=== PATIENT | male | born 1965 | race Caucasian/White ===

== ENCOUNTER 2018-04-12 22:48 | Emergency (ER) | payer BC, OTHER ==
[~2018-04-12] VITALS: Ht 170.2 cm; Wt 63.5 kg
[~2018-04-12 22:48] MED LIST: Z.0.NO CURRENT MEDS
[2018-04-12 23:04] VITALS: BP 133/84; PULSE 93; RESP 20; TEMP 98.3
--- NOTE | 2018-04-12 23:21 | PD ---
HPI Chief Complaint: Psychiatric Symptoms Time Seen by Provider: 23:04 Travel History International Travel<30 days: No Contact w/Intl Traveler<30days: No Traveled to known affect area: No History of Present Illness HPI 52-year-old white male presents emergency department under Sam act by PD. Patient had contacted PD advising him that he wanted to . He was hoping that long enforcement which she would him. He states that his parents or kicking him out of the house. He will have nowhere else to go but here. He states that he is depressed. He states he is suffering from chronic medical problems but he will not elaborate. He admits to drinking alcohol. He denies any toxic ingestion. He does smoke marijuana. He denies any other drugs. Symptoms are severe. Worsened by alcohol. No alleviating factors. PFSH Past Medical History Narrative Medical Psoriasis, DJD, questionable hypertension Tetanus Vaccination: Unknown Past Surgical History Surgical History: Unable to Obtain Social History Alcohol Use: Yes Tobacco Use: Yes (1 PPD) Substance Use: Yes (Marijuana) Allergies-Medications (Allergen,Severity, Reaction): Coded Allergies: No Known Allergies (Verified Allergy, Mild, 05/03/07) Reported Meds & Prescriptions Reported Meds & Active Scripts Active Reported No Current Meds (Miscellaneous Medication) Misc Review of Systems ROS Limitations: Uncooperative, Poor Historian Physical Exam Narrative GENERAL: Well-nourished, well-developed patient. SKIN: Large plaques of psoriasis diffusely on his body. HEAD: Normocephalic and atraumatic. EYES: No scleral icterus. No injection or drainage. ENT: No nasal drainage noted. Mucous membranes pink. Airway patent. NECK: Supple, trachea midline. Moves head freely without obvious discomfort. CARDIOVASCULAR: Regular rate and rhythm without murmurs, gallops, or rubs. RESPIRATORY: Breath sounds equal bilaterally. No accessory muscle use. GASTROINTESTINAL: Abdomen soft, non-tender, nondistended. EXTREMITIES: No cyanosis or edema. BACK: Nontender without obvious deformity. No CVA tenderness. NEURO: Patient is alert and oriented. no sensorimotor deficits. Nonfocal. Normal speech. PSYCH: No delusions. No auditory or visual hallucinations. Data Data Last Documented VS Vital Signs Date Time Temp Pulse Resp B/P (MAP) Pulse Ox O2 Delivery O2 Flow Rate FiO2 04/12/18 23:04 98.3 93 20 133/84 (100) Orders Orders Complete Blood Count With Diff (04/12/18 23:16) Comprehensive Metabolic Panel (04/12/18 23:16) Thyroid Stimulating Hormone (04/12/18 23:16) Psych Screen (04/12/18 23:16) Drug Screen, Random Urine (04/12/18 23:16) Alcohol (Ethanol) (04/12/18 23:16) Salicylates (Aspirin) (04/12/18 23:16) Tylenol (Acetaminophen) (04/12/18 23:16) Diet Regular Basic (04/13/18 Breakfast) Labs Laboratory Tests Test 04/12/18 23:20 04/13/18 00:05 White Blood Count 7.8 TH/MM3 Red Blood Count 5.30 MIL/MM3 Hemoglobin 19.4 GM/DL Hematocrit 54.2 % Mean Corpuscular Volume 102.4 FL Mean Corpuscular Hemoglobin 36.5 PG Mean Corpuscular Hemoglobin Concent 35.7 % Red Cell Distribution Width 15.1 % Platelet Count 229 TH/MM3 Mean Platelet Volume 9.6 FL Neutrophils (%) (Auto) 53.9 % Lymphocytes (%) (Auto) 27.5 % Monocytes (%) (Auto) 8.5 % Eosinophils (%) (Auto) 8.7 % Basophils (%) (Auto) 1.4 % Neutrophils # (Auto) 4.2 TH/MM3 Lymphocytes # (Auto) 2.2 TH/MM3 Monocytes # (Auto) 0.7 TH/MM3 Eosinophils # (Auto) 0.7 TH/MM3 Basophils # (Auto) 0.1 TH/MM3 CBC Comment DIFF FINAL Differential Comment Blood Urea Nitrogen 11 MG/DL Creatinine 1.07 MG/DL Random Glucose 97 MG/DL Total Protein 7.8 GM/DL Albumin 3.9 GM/DL Calcium Level 9.0 MG/DL Alkaline Phosphatase 140 U/L Aspartate Amino Transf (AST/SGOT) 32 U/L Alanine Aminotransferase (ALT/SGPT) 38 U/L Total Bilirubin 0.5 MG/DL Sodium Level 140 MEQ/L Potassium Level 4.2 MEQ/L Chloride Level 108 MEQ/L Carbon Dioxide Level 20.2 MEQ/L Anion Gap 12 MEQ/L Estimat Glomerular Filtration Rate 72 ML/MIN Thyroid Stimulating Hormone 3rd Gen 1.910 uIU/ML Salicylates Level 3.1 MG/DL Acetaminophen Level LESS THAN 2.0 MCG/ML Ethyl Alcohol Level 140 MG/DL Urine Opiates Screen NEG Urine Barbiturates Screen NEG Urine Amphetamines Screen NEG Urine Benzodiazepines Screen NEG Urine Cocaine Screen NEG Urine Cannabinoids Screen NEG MDM Medical Decision Making Medical Screen Exam Complete: Yes Emergency Medical Condition: Yes Medical Record Reviewed: Yes Interpretation(s) Laboratory Tests Test 04/12/18 23:20 04/13/18 00:05 White Blood Count 7.8 TH/MM3 Red Blood Count 5.30 MIL/MM3 Hemoglobin 19.4 GM/DL Hematocrit 54.2 % Mean Corpuscular Volume 102.4 FL Mean Corpuscular Hemoglobin 36.5 PG Mean Corpuscular Hemoglobin Concent 35.7 % Red Cell Distribution Width 15.1 % Platelet Count 229 TH/MM3 Mean Platelet Volume 9.6 FL Neutrophils (%) (Auto) 53.9 % Lymphocytes (%) (Auto) 27.5 % Monocytes (%) (Auto) 8.5 % Eosinophils (%) (Auto) 8.7 % Basophils (%) (Auto) 1.4 % Neutrophils # (Auto) 4.2 TH/MM3 Lymphocytes # (Auto) 2.2 TH/MM3 Monocytes # (Auto) 0.7 TH/MM3 Eosinophils # (Auto) 0.7 TH/MM3 Basophils # (Auto) 0.1 TH/MM3 CBC Comment DIFF FINAL Differential Comment Blood Urea Nitrogen 11 MG/DL Creatinine 1.07 MG/DL Random Glucose 97 MG/DL Total Protein 7.8 GM/DL Albumin 3.9 GM/DL Calcium Level 9.0 MG/DL Alkaline Phosphatase 140 U/L Aspartate Amino Transf (AST/SGOT) 32 U/L Alanine Aminotransferase (ALT/SGPT) 38 U/L Total Bilirubin 0.5 MG/DL Sodium Level 140 MEQ/L Potassium Level 4.2 MEQ/L Chloride Level 108 MEQ/L Carbon Dioxide Level 20.2 MEQ/L Anion Gap 12 MEQ/L Estimat Glomerular Filtration Rate 72 ML/MIN Thyroid Stimulating Hormone 3rd Gen 1.910 uIU/ML Salicylates Level 3.1 MG/DL Acetaminophen Level LESS THAN 2.0 MCG/ML Ethyl Alcohol Level 140 MG/DL Urine Opiates Screen NEG Urine Barbiturates Screen NEG Urine Amphetamines Screen NEG Urine Benzodiazepines Screen NEG Urine Cocaine Screen NEG Urine Cannabinoids Screen NEG Differential Diagnosis MDM: High Differential diagnoses: Schizophrenia, schizoaffective disorder, bipolar, anxiety, depression, adjustment reaction, mood disorder NOS, ODD, depressive disorder NOS, psychosis NOS, substance induced mood disorder, infection, electrolyte abnormality, malingering. Narrative Course Mental health screening discussed with the patient. Psychiatric screen ordered. The patient is a very poor historian. Is very histrionic. He appears to be under the influence of alcohol and/or drugs. A complete history is not obtainable. At this point I do not see anything that looks emergent. We will obtain blood in urine and medically clear the patient. I suspect part of this is that his parents or kicking him out of the house and he has nowhere else to go. This is medical clearance for psychiatric admission Diagnosis Primary Impression: Medical clearance for psychiatric admission Condition: Lennox Waters Apr 12, 2018 23:21
[2018-04-12 23:48] LABS: AUTOMATED NEUTROPHIL # 4.2 TH/MM3 (1.8-7.7); BASOPHIL # 0.1 TH/MM3 (0-0.2); BASOPHIL % 1.4 % (0.0-2.0); EOSINOPHIL # 0.7 TH/MM3 (0-0.4); EOSINOPHIL % 8.7 % (0.0-4.0); HEMATOCRIT 54.2 % (39.0-51.0); HEMOGLOBIN 19.4 GM/DL (13.0-17.0); LYMPH % 27.5 % (9.0-44.0); LYMPHOCYTE # 2.2 TH/MM3 (1.0-4.8); MEAN CELL VOLUME 102.4 FL (80.0-100.0); MEAN CORPUSCULAR HEMOGLOBIN 36.5 PG (27.0-34.0); MEAN CORPUSCULAR HGB CONC 35.7 % (32.0-36.0); MEAN PLATELET VOLUME 9.6 FL (7.0-11.0); MONO % 8.5 % (0.0-8.0); MONOCYTE # 0.7 TH/MM3 (0-0.9); NEUT % 53.9 % (16.0-70.0); PLATELET COUNT 229 TH/MM3 (150-450); RED CELL DISTRIBUTION WIDTH 15.1 % (11.6-17.2); WHITE BLOOD COUNT 7.8 TH/MM3 (4.0-11.0)
[2018-04-13 00:04] LABS: ACETAMINOPHEN LESS THAN 2.0 MCG/ML (10.0-30.0); ALBUMIN 3.9 GM/DL (3.4-5.0); ALT (GPT) 38 U/L (12-78); AST (GOT) 32 U/L (15-37); BICARBONATE 20.2 MEQ/L (21.0-32.0); BLOOD UREA NITROGEN 11 MG/DL (7-18); CHLORIDE 108 MEQ/L (98-107); CREATININE 1.07 MG/DL (0.60-1.30); GLOMERULAR FILTRATION RATE 72 ML/MIN (>89); GLUCOSE,RANDOM 97 MG/DL (74-106); SODIUM (NA) 140 MEQ/L (136-145)
[2018-04-13 00:13] LABS: ALKALINE PHOSPHATASE 140 U/L (45-117); TOTAL BILIRUBIN ADULT 0.5 MG/DL (0.2-1.0); TOTAL PROTEIN 7.8 GM/DL (6.4-8.2)
[2018-04-13 02:29] VITALS: BP 115/71; PULSE 88; RESP 18; TEMP 98.5; O2SAT 97
[2018-04-13 06:09] VITALS: BP 136/82; PULSE 76; RESP 17; TEMP 98.9; O2SAT 95
[2018-04-13 08:56] VITALS: BP 132/74; PULSE 75; RESP 18; O2SAT 98
--- NOTE | 2018-04-13 11:20 | PD ---
Physical Exam Date Seen by Provider: Apr 13, 2018 Time Seen by Provider: 11:19 Narrative 52-year-old male previously Sam acted and medically cleared for psychiatric evaluation, has been evaluated by psychiatric staff. He has been deemed psychiatrically stable for discharge at this time. Patient remains medically stable for discharge. Follow-up will be based on psychiatric note. Data Data Last Documented VS Vital Signs Date Time Temp Pulse Resp B/P (MAP) Pulse Ox O2 Delivery O2 Flow Rate FiO2 04/13/18 08:56 75 18 132/74 (93) 98 Room Air 04/13/18 06:09 98.9 Orders Orders Complete Blood Count With Diff (04/12/18 23:16) Comprehensive Metabolic Panel (04/12/18 23:16) Thyroid Stimulating Hormone (04/12/18 23:16) Psych Screen (04/12/18 23:16) Drug Screen, Random Urine (04/12/18 23:16) Alcohol (Ethanol) (04/12/18 23:16) Salicylates (Aspirin) (04/12/18 23:16) Tylenol (Acetaminophen) (04/12/18 23:16) Diet Regular Basic (04/13/18 Breakfast) Diet Regular Basic (04/13/18 Lunch) Labs Laboratory Tests Test 04/12/18 23:20 04/13/18 00:05 White Blood Count 7.8 TH/MM3 Red Blood Count 5.30 MIL/MM3 Hemoglobin 19.4 GM/DL Hematocrit 54.2 % Mean Corpuscular Volume 102.4 FL Mean Corpuscular Hemoglobin 36.5 PG Mean Corpuscular Hemoglobin Concent 35.7 % Red Cell Distribution Width 15.1 % Platelet Count 229 TH/MM3 Mean Platelet Volume 9.6 FL Neutrophils (%) (Auto) 53.9 % Lymphocytes (%) (Auto) 27.5 % Monocytes (%) (Auto) 8.5 % Eosinophils (%) (Auto) 8.7 % Basophils (%) (Auto) 1.4 % Neutrophils # (Auto) 4.2 TH/MM3 Lymphocytes # (Auto) 2.2 TH/MM3 Monocytes # (Auto) 0.7 TH/MM3 Eosinophils # (Auto) 0.7 TH/MM3 Basophils # (Auto) 0.1 TH/MM3 CBC Comment DIFF FINAL Differential Comment Blood Urea Nitrogen 11 MG/DL Creatinine 1.07 MG/DL Random Glucose 97 MG/DL Total Protein 7.8 GM/DL Albumin 3.9 GM/DL Calcium Level 9.0 MG/DL Alkaline Phosphatase 140 U/L Aspartate Amino Transf (AST/SGOT) 32 U/L Alanine Aminotransferase (ALT/SGPT) 38 U/L Total Bilirubin 0.5 MG/DL Sodium Level 140 MEQ/L Potassium Level 4.2 MEQ/L Chloride Level 108 MEQ/L Carbon Dioxide Level 20.2 MEQ/L Anion Gap 12 MEQ/L Estimat Glomerular Filtration Rate 72 ML/MIN Thyroid Stimulating Hormone 3rd Gen 1.910 uIU/ML Salicylates Level 3.1 MG/DL Acetaminophen Level LESS THAN 2.0 MCG/ML Ethyl Alcohol Level 140 MG/DL Urine Opiates Screen NEG Urine Barbiturates Screen NEG Urine Amphetamines Screen NEG Urine Benzodiazepines Screen NEG Urine Cocaine Screen NEG Urine Cannabinoids Screen NEG MDM Medical Record Reviewed: Yes Supervised Visit with RYLIE: Yes Narrative Course 52-year-old male previously Sam acted and medically cleared for psychiatric evaluation, has been evaluated by psychiatric staff. He has been deemed psychiatrically stable for discharge at this time. Patient remains medically stable for discharge. Follow-up will be based on psychiatric note. Diagnosis Primary Impression: Medical clearance for psychiatric admission Additional Impression: Adjustment disorder Qualified Codes: F43.20 - Adjustment disorder, unspecified Patient Instructions: General Instructions Disposition: DISCHARGE HOME Condition: Stable Cleveland Landers Apr 13, 2018 11:20
--- NOTE | 2018-04-13 11:39 | PD ---
History of Present Illness Chief Complaint: Psychiatric Symptoms Time Seen by Provider: 11:05 Travel History International Travel<30 Days: No Contact w/Intl Traveler<30days: No Known affected area: No Legal Status Legal Status: Sam Act Sam Act Signed By: Eladio Calderon History of Present Illness: History of Present Illness HPI 52-year-old single, unemployed white male, residing with his parents, with no previous psychiatric history who presents to emergency department under Sam act initiated by PD. The Sam act report alleges that the patient contacted the police and told them that he bent be better off if someone shot him in the head. He stated to them that he need to make a change and wants to get better. He asked law enforcement to shoot him. The patient did not make any attempt to harm himself. Patient was not agitated or restless. EMR reviewed no previous contact with [facility]. Blood alcohol level on arrival is 140. Patient was allowed to sober up clinically and monitored in secure environment and he presented no behavioral concerns and no suicidality. Patient is seen. He is alert, oriented, dressed in hospital paper scrubs, disheveled appearance. When asked the reason for him coming to the hospital he states" I was hoping that I could learn something about my depression. He also states that I was trying to get some help. I was trying to get disability and Social Security. I was talking to Anatoliy Finario the count includes the [facility] and he gave me the idea to come to the hospital." The patient's speech is clear and logical. There is no evidence of any hallucinations, no delusions, no paranoia. The patient's affect is variable. Appropriate eye contact. She has concerns regarding multiple health issues including his pain in his legs that he believes prevented him from doing the things he likes to do such as riding a bicycle. Patient does report that he has low level of energy and low motivation. There is no suicidal or homicidal ideation, intent and plan. The patient wants help for his multiple medical problems. He is trying to get disability so that he can get medical insurance as well. The patient does not meet criteria for inpatient psychiatric treatment and I have asked I have talked to him about outpatient care through [facility]. We will provide him with those referrals. Telephone contact with his father at [phone]. He has no concerns if he is discharged. He will pick him up from the ED. I reiterated to the father that he is giving referrals for outpatient care. PFSH Past Medical History Tetanus Vaccination: Unknown Past Surgical History Surgical History: Unable to Obtain Psychiatric History Psychiatric History Hx Psychiatric Treatment: No previous psychiatric history. No history of previous suicide attempt. No history of self-injurious behavior. History of Inpatient Treatment: No Guns or firearms in home: No Social History Single, never . Unemployed. 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 Living with his parents Hx Alcohol Use: Yes (Denies daily use of alcohol) Hx Tobacco Use: Yes (1 PPD) Hx Substance Use: Yes (alcohol) Hx of Substance Use Treatment: No Family Psychiatric History None reported Allergies-Medications (Allergen,Severity, Reaction): Coded Allergies: No Known Allergies (Verified Allergy, Mild, 05/03/07) Reported Meds & Prescriptions Reported Meds & Active Scripts Active Reported No Current Meds (Miscellaneous Medication) Misc Review of Systems Constitutional: COMPLAINS OF: Fatigue Musculoskeletal: COMPLAINS OF: Joint pain Integumentary: COMPLAINS OF: Rash Immunologic/allergic: COMPLAINS OF: Eczema Psychiatric: COMPLAINS OF: Depression Mental Status Examination Appearance: Disheveled Consciousness: Alert Orientation: x4 Motor Activity: Normal gait Speech: Unremarkable Language: Adequate Fund of Knowledge: Adequate Attention and Concentration: Adequate Memory: Unremarkable Mood: Anxious Affect: Appropriate Thought Process & Associations: Intact, Logical, Goal directed Thought Content: Appropriate Hallucination Type: None Delusion Type: None Suicidal Ideation: No Suicidal Plan: No Suicidal Intention: No Homicidal Ideation: No Homicidal Plan: No Homicidal Intention: No Insight: Fair Judgment: Adequate MDM Medical Decision Making Medical Record Reviewed: Yes Assessment/Plan 52-year-old single, unemployed white male, residing with his parents, with no previous psychiatric history who presents to emergency department under Sam act initiated by PD. The Sam act report alleges that the patient contacted the police and told them that he bent be better off if someone shot him in the head. He stated to them that he need to make a change and wants to get better. He asked law enforcement to shoot him. The patient did not make any attempt to harm himself. Patient was not agitated or restless. Patient was monitor and secure environment and presented no behavioral concerns he presented no agitation or restlessness or suicidality. Patient does not present criteria for inpatient psychiatric treatment. He came to the hospital as it was recommended to him by a worker helping him to obtain his disability and his insurance. He will be referred to outpatient therapy at [facility]. Parents were contacted and they felt comfortable and has no concerns if he was discharge. Patient is provided psychoeducation BA is lifted. To follow up with [facility]. Orders Orders Complete Blood Count With Diff (04/12/18 23:16) Comprehensive Metabolic Panel (04/12/18 23:16) Thyroid Stimulating Hormone (04/12/18 23:16) Psych Screen (04/12/18 23:16) Drug Screen, Random Urine (04/12/18 23:16) Alcohol (Ethanol) (04/12/18 23:16) Salicylates (Aspirin) (04/12/18 23:16) Tylenol (Acetaminophen) (04/12/18 23:16) Diet Regular Basic (04/13/18 Breakfast) Diet Regular Basic (04/13/18 Lunch) Ed Discharge Order (04/13/18 11:20) Results Vital Signs Date Time Temp Pulse Resp B/P (MAP) Pulse Ox O2 Delivery O2 Flow Rate FiO2 04/13/18 08:56 75 18 132/74 (93) 98 Room Air 04/13/18 06:09 98.9 76 17 136/82 (100) 95 Room Air 04/13/18 02:29 98.5 88 18 115/71 (86) 97 Room Air 04/12/18 23:04 98.3 93 20 133/84 (100) Laboratory Tests Test 04/12/18 23:20 04/13/18 00:05 White Blood Count 7.8 Red Blood Count 5.30 Hemoglobin 19.4 Hematocrit 54.2 Mean Corpuscular Volume 102.4 Mean Corpuscular Hemoglobin 36.5 Mean Corpuscular Hemoglobin Concent 35.7 Red Cell Distribution Width 15.1 Platelet Count 229 Mean Platelet Volume 9.6 Neutrophils (%) (Auto) 53.9 Lymphocytes (%) (Auto) 27.5 Monocytes (%) (Auto) 8.5 Eosinophils (%) (Auto) 8.7 Basophils (%) (Auto) 1.4 Neutrophils # (Auto) 4.2 Lymphocytes # (Auto) 2.2 Monocytes # (Auto) 0.7 Eosinophils # (Auto) 0.7 Basophils # (Auto) 0.1 CBC Comment DIFF FINAL Differential Comment Blood Urea Nitrogen 11 Creatinine 1.07 Random Glucose 97 Total Protein 7.8 Albumin 3.9 Calcium Level 9.0 Alkaline Phosphatase 140 Aspartate Amino Transf (AST/SGOT) 32 Alanine Aminotransferase (ALT/SGPT) 38 Total Bilirubin 0.5 Sodium Level 140 Potassium Level 4.2 Chloride Level 108 Carbon Dioxide Level 20.2 Anion Gap 12 Estimat Glomerular Filtration Rate 72 Thyroid Stimulating Hormone 3rd Gen 1.910 Salicylates Level 3.1 Acetaminophen Level LESS THAN 2.0 Ethyl Alcohol Level 140 Urine Opiates Screen NEG Urine Barbiturates Screen NEG Urine Amphetamines Screen NEG Urine Benzodiazepines Screen NEG Urine Cocaine Screen NEG Urine Cannabinoids Screen NEG Diagnosis Primary Impression: Medical clearance for psychiatric admission Additional Impression: Adjustment disorder Psychiatrically Cleared: Yes Departure Forms: Tests/Procedures Patient Instructions: General Instructions Additional Instructions: FOLLOW UP WITH [facility] FOLLOW UP WITH PRIMARY CARE PHYSICIAN FOLLOW UP WITH PSYCHIATRY RETURN TO EMERGENCY DEPARTMENT IF SYMPTOMS PERSIST OR WORSEN Med/ Other Pt Specific Info: No Meds Exist/No RX given Disposition: 01 DISCHARGE HOME Condition: Stable Problem Qualifiers Additional Impression: Adjustment disorder Qualified Codes: F43.25 - Adjustment disorder with mixed disturbance of emotions and conduct Taylor Cordova Apr 13, 2018 11:39
== END 2018-04-13 11:56 | disposition home or self-care (01) ==
LOC: NEPJ 22:48
DX: F43.25 Adjustment disorder with mixed disturbance of emotions and conduct (principal); F17.210 Nicotine dependence, cigarettes, uncomplicated; F12.90 Cannabis use, unspecified, uncomplicated
CPT/HCPCS: 80053; 80307; 84443; 85025; 99284